=== PATIENT | male | born 1950 ===

== ENCOUNTER 2024-11-15 10:45 | Outpatient (AMB) | payer OTHER, SELFPAY ==
--- OUTSIDE RECORDS SUMMARY | 2024-11-15 11:59 | XMS_ITS | Clinical Summary ---
Author Organization [facility] Address [address] [place] [address] Phone Care Team Providers Care Adjunct Spanish Instructor Name Role Phone Rhett Brown MD Primary Care Provider + Allergies No known active allergies Medications pantoprazole (PROTONIX) 40 MG tablet 01/14/2023 Active sucralfate (CARAFATE) 1 gram tablet 12/13/2022 Active TIADYLT ER 120 mg 24 hr capsule Take 1 capsule by mouth every morning. 12/01/2022 Active cromolyn (OPTICROM) 4 % ophthalmic solution PLACE 1 DROP INTO THE AFFECTED EYE(S) 4 TIMES A DAY X90N DAYS 01/15/2023 Active ADVAIR DISKUS 250-50 mcg/dose DISKUS INHALE 1 PUFF 2 TIMES A DAY FOR 90 DAYS 11/04/2022 Active meloxicam (MOBIC) 15 MG tablet Take 15 mg by mouth daily. Active Active Problems Problem Noted Date Diagnosed Date Pharyngoesophageal dysphagia 01/27/2023 Gastroesophageal reflux disease 01/27/2023 Dry mouth 01/27/2023 Dysphonia 01/27/2023 Paroxysmal SVT (supraventricular tachycardia) 01/23/2023 Encounters Date Type Department Care Team Description 09/08/2024 Transcribe Orders [facility] [address] [place] [address], 5[address] [place] [address] Rhett Brown MD Gastroesophageal reflux disease, unspecified whether esophagitis present (Primary Dx) from Last 3 Months Social History Tobacco Use Types Packs/Day Years Used Date Smoking Tobacco: Never Assessed Education Answer Date Recorded Are you interested in more education? Not on gaby e 09/12/2022 Are you concerned about learning? Not on file 09/12/2022 No 09/12/2022 No 09/12/2022 Digital Access Answer Date Recorded No 09/12/2022 No 09/12/2022 Reliable internet access at home? Not on file 09/12/2022 Device with a working camera? Not on file Sex and Gender Information Value Date Recorded Sex Assigned at Male 07/03/2022 12:01 PM EDT Legal Sex Male 11:57 AM EDT Gender Identity Male 07/03/2022 12:01 PM EDT Sexual Orientation Straight 07/03/2022 12 :01 PM EDT Last Filed Vital Signs Vital Sign Reading Time Taken Comments Blood Pressure 115/81 01/23/2023 11:24 AM EDT Pulse 106 01/23/2023 11:24 AM EDT Temperature 36.9 C (98.5 F) 01/23/2023 11:24 AM EDT Respiratory Rate - - Oxygen Saturation 99% 01/23/2023 11:24 AM EDT Inhaled Oxygen Concentration - - Weight 73.5 kg (162 lb) 01/23/2023 11:24 AM EDT Height 188 cm (6' 2 ) 01/23/2023 11:24 AM EDT Body Mass Index 20.8 01/23/2023 11:24 AM EDT Plan of Treatment Health Maintenance Due Date Last Done Comments Adult Td,Tdap Booster 1949 LIPID PANEL 1949 SMOKING Hx and SMOKELESS TOBACCO SCREENING 1962 HEPATITIS C SCREENING 1967 COLOGUARD 1994 COLONOSCOPY 1994 COLORECTAL CANCER SCREENING 1994 FIT TEST 1994 FOBT 1994 SIGMOIDOSCOPY 1994 VIRTUAL COLONOSCOPY 1994 PNEUMOCOCCAL VACCINES (50+ years) (1 of 1 - PCV) 1999 ZOSTER VACCINES (1 of 2) 1999 COVID-19 VACCINE ( - 2023-2 5 season) 2023 DEPRESSION SCREENING 01/17/2024 01/16/2023, 01/16/2023 RSV VACCINE (1 - 1-dose 75+ series) 2024 INFLUENZA VACCINE (#1) 2024 HEPATITIS A VACCINES Aged Out No long er eligible based on patient's age to complete this topic HIB VACCINES Aged Out No longer eligi ble based on patient's age to complete this topic MENINGOCOCCAL VACCINES (ACWY) Aged Out No longer eligible based on patient's age to complete this topic MENINGOCOCCAL VACCINES (B) Aged Out N o longer eligible based on patient's age to complete this topic Medical Devices Not on file Insurance [employer] TOTAL CHOICE INDEMNITY [employer] TOTAL CHOICE INDEMNITY [employer] TOTAL CHOICE INDEMNITY [employer] TOTAL CHOICE INDEMNITY [employer] [facility] TOTAL CHOICE INDEMNITY [employer] TOTAL CHOICE INDEMNITY Care Teams Adjunct Spanish Instructor Relationship Specialty Start Date End Date Rhett Brown MD [address] [place] [address] [email or web address] PCP - General Internal Medicine 07/03/22 Additional Source Comments The information contained in this document represents components of the legal health record. It is not the complete legal health record.[facility]
--- OUTSIDE RECORDS SUMMARY | 2024-11-15 11:59 | XMS_ITS | Patient Health Record ---
Author Organization [facility] Address [address] [facility] [place] [address] Care Team Providers Care Firer Glost Kiln Name Role Phone Humble Vásquez MD Primary Care Provider Lei Flores Unavailable [phone] Reason For Referral No Information Medications Medication SIG (Take, Route, Frequency, Duration) Notes Start Date End Date Status Sucralfate Active Glucosamine 1500 Complex Active Chondroitin Sulfate Active Mobic Active Fluticasone Propionate 50 MCG/ACT 1 spray in each nostril Nasally Once a day; Duration: 30 day(s) Active Margaret Active Physical Therapy . . .dx: achilles tend initis and retrocalcaneal burisits left with spur; please us US, ES and iontophoresis 2-3x/week; Duration: 3-4 weeks 05/21/2013 Active Cromolyn Sodium Acti ve Social History Tobacco use other than smoking: Question Answer Notes Are you an other tobacco user? No Problems Problem Type SNOMED Code ICD Code Onset Dates Problem Status W/U Status Risk Notes Problem Disorder of joint of ankle and/or foot (053843606) Arthritis - Degenerative (719.97) Active confirmed Problem Hammer toe (424033002) Hammer toe (735.4) Active confirmed Problem Achilles bursitis (081616841) Achilles Tendonitis Bursitis (726.71) Active confirmed Problem Exostosis (86839819) Exostosis (726.91) Active confirmed Plan Of Treatment No Information Insurance Providers Payer Name Payer Address Payer Phone Subscriber Number Group Number Insured Name Patient Relationship to Insured Coverage Start Date Coverage End Date [employer] (Unicare) [address] [place] [address] [id number] Red Gomez Self - patient is the insured Medical (General) History Medical History History ICD Code asthma Sinus conditions Surgical History Surgery Date(Month/Year) hernia 2012 knee surgery, left shoulder surgery Hospitalization History Reason Date(Month/Year) [facility]- hernia surgery 06/05/12 colonoscopy 04/06
--- OUTSIDE RECORDS SUMMARY | 2024-11-15 11:59 | XMS_ITS | Clinical Summary ---
Author Organization [facility] [address] [facility] Address [address] [place] [address] Phone Care Team Providers Care Salesforce Specialist Name Role Phone Rhett Brown MD Primary Care Provider [phone] Allergies No known active allergies Medications albuterol HFA (PROAIR HFA ; PROVENTIL HFA ; VENTOLIN HFA) 90 mcg/actuation inhaler INHALE 2 PUFFS BY MOUTH 4 TIMES DAILY NEEDED FOR COUGH/WHEEZE Active cromolyn (OPTICROM) 4 % ophthalmic solution PLACE 1 DROP INTO THE AFFECTED EYE(S) 4 TIMES A DAY X90N DAYS 01/16/20 23 Active Tiadylt ER 120 mg 24 hr capsule Take 1 capsule (120 mg total) by mouth 1 (one) time each day. Active Wixela Inhub 250-50 mcg/dose diskus inhaler INHALE 1 INHALATION TWICE A DAY Active fluticasone propionate (Flonase Allergy Relief) 50 mcg/actuation nasal spray 2 times a day, 0 Refills, Maintenance, 01/21/18 11:38:27 AM EDT 01/22/20 18 Active hydrocortisone (ANUSOL-HC) 2.5 % rectal cream APPLY RECTIALLY 2 TIMES DAILY 09/01/19 24 Active meloxicam (MOBIC) 15 mg tablet Take 1 tablet (15 mg total) by mouth daily. Active metroNIDAZOLE (METROGEL) 0.75 % gel APPLY 1-2X DAILY TO FACE FOR ROSACEA. NON-COMEDOGENI C MOISTURIZER WITH SPF 30+ DAILY 07/06/19 25 Active mometasone (NASONEX) 50 mcg/actuation nasal spray Administer 1 spray into each nostril 2 (two) times a day. 03/26/19 25 Active pantoprazole (PROTONIX) 40 mg EC tabletIndicatio ns:Gastroesopha geal reflux disease without esophagitis TAKE 1 TABLET BY MOUTH TWICE A DAY 180 tablet 11/13/19 25 Active pantoprazole (PROTONIX) 40 mg EC tabletIndicatio ns:Gastroesopha geal reflux disease without esophagitis TAKE 1 TABLET BY MOUTH TWICE A DAY 180 tablet 08/10/19 25 025 Discontinued Encounters Date Type Department Care Team Description 08/25/2024 10:00 AM EDT Office Visit Gastroenterology - [address] [place] [id number] Aguilar Dow PA Gastroesophageal reflux disease without esophagitis (Primary Dx); Colon cancer screening from Last 3 Months Surgical History Surgery Date Site/Laterality Comments COLONOSCOPY 03/24/2013 - 03/23/2014 hemorrhoids ([address] Bryant Social History Tobacco Use Types Packs/Day Years Used Date Smoking Tobacco: Never Smokeless Tobacco: Never Tobacco Cessation:Counseling Given: Not Answered Alcohol Use Standard Drinks/Week Comments Never 0 (1 standard drink = 0.6 oz pur e alcohol) Sex and Gender Information Value Date Recorded Sex Assigned at Not on file Legal Sex Male 11:31 AM EST Gender Identity Not on file Sexual Orientation Not on file Obstetrics History Last Filed Vital Signs Vital Sign Reading Time Taken Comments Blood Pressure - - Pulse - - Temperature - - Respiratory Rate - - Oxygen Saturation - - Inhaled Oxygen Concentration - - Weight 73 kg (161 lb) 08/25/2024 10:00 AM EDT Height 193 cm (6' 4 ) 08/25/2024 10:00 AM EDT Body Mass Index 19.6 08/25/2024 10:00 AM EDT Plan of Treatment Health Maintenance Due Date Last Done Comments DTaP,Tdap,and Td Vaccines (1 - Tdap) 1969 Pneumococcal Vaccine: 50+ Years (2 of 2 - PPSV23) 11/17/2018 11/17/2017 Cholesterol Screening (Lipid Panel) 02/19/2022 Falls Risk Assessment 02/19/2022 Hepatitis C Screening 02/19/2022 Social Influencers of Health Screening 02/19/2022 Colorectal Cancer Screening: Colonoscopy 03/30/2023 03/30/2013 Depression Screening 03/24/2024 COVID-19 Vaccine ( season) 2024 02/29/2024, 06/13/2023, 06/11/2023, Additional history exists Influenza Vaccine (#1) 2024 , 01/03/2023, 12/27/2021, Additional history exists Zoster Vaccines Completed 12/17/2017, 09/04/2017 RSV Immunization Adult Patients Completed 03/16/2023 HIB Vaccines Aged Out No longer eligi ble based on patient's age to complete this topic HPV Vaccines Aged Out No longer eligi ble based on patient's age to complete this topic Hepatitis A Vaccines Aged Out No long er eligible based on patient's age to complete this topic Hepatitis B Vaccines Aged Out No long er eligible based on patient's age to complete this topic IPV Vaccines Aged Out No longer eligi ble based on patient's age to complete this topic MMR Vaccines Aged Out No longer eligi ble based on patient's age to complete this topic Meningococcal ACWY Vaccine Aged Out N o longer eligible based on patient's age to complete this topic Meningococcal B Vaccine Aged Out No l onger eligible based on patient's age to complete this topic RSV Immunization Patients Under 20 months Aged Out No longer eligible based on patient's age to complete this topic Varicella Vaccines Aged Out No longer eligible based on patient's age to complete this topic Procedures Procedure Name Priority Date/Time Associated Diagnosis Comments EXTERNAL COLONOSCOPY REPORT Routine 03/30/2013 4:00 PM EST from Last 3 Months or Most Recently Relevant to Health Maintenance Results * External Colonoscopy Report (03/30/2013 4:00 PM EST) Anatomical Region Laterality Modality Endoscopy us Historical Provider GI~PROCEDURE ORDERABLES F inal Result from Last 3 Months or Most Recently Relevant to Health Maintenance Insurance [employer] Care Teams Salesforce Specialist Relationship Specialty Start Date End Date Rhett Brown MD [address] [place] [address] PCP - General Internal Medicine 08/25/24
== END 2024-11-16 11:16 | disposition home or self-care (01) ==
LOC: HO.HMGAL 10:45
PROVIDERS: PCP Internal Medicine; Visit Provider Registered Nurse Emergency
DX: J30.89 Other allergic rhinitis (principal)
CPT/HCPCS: 95117; 95165

== ENCOUNTER 2024-12-06 11:30 | Outpatient (AMB) | payer OTHER, SELFPAY ==
--- OUTSIDE RECORDS SUMMARY | 2024-12-06 15:47 | XMS_ITS | Encounter Summary ---
Author Organization [facility] Address [address] [place] [address] Phone Care Team Providers Care Ground Water Technician Name Role Phone Rhett Brown MD Primary Care Provider + Encounter Details Date Type Department Care Team (Late st Contact Info) Description 11/29/2024 Hospital Encounter [address] DEPT [address] [facility], 4th [place] [address] Stephanie Orona MD [address] [place] [id number] [email or web address] Social History Tobacco Use Types Packs/Day Years [...] Orientation Straight 07/03/2022 12 :01 PM EDT documented as of this encounter Plan of Treatment Not on file documented as of this encounter Visit Diagnoses Not on filedocumented in this encounter Additional Health Concerns Assessment Noted Time PHQ-9 Depression Total Score: 2 01/17/20 8:56 PM EDT PHQ-2 Depression Total Score: 0 01/17/20 8:56 PM EDT documented as of this encounter Care Teams Ground Water Technician Relationship Specialty Start Date End Date Rhett Brown MD [address] [place] [address] [email or web address] PCP - General Internal Medicine 07/03/22 documented as of this encounter Additional Source Comments The information contained in this document represents components of the legal health record. It is not the complete legal health record.[facility]
--- OUTSIDE RECORDS SUMMARY | 2024-12-06 15:47 | XMS_ITS | Clinical Summary ---
Author Organization [facility] Address [address] [place] [phone] Phone Care Team Providers Care Health Information Technologist Name Role Phone Rhett Brown MD Primary [...] Encounters Date Type Department Care Team Description 11/29/2024 Hospital Encounter [place] [address] ENDO DEPT [address] [facility], 4th [place] [address] Stephanie Orona MD 09/08/2024 Transcribe Orders [facility] [address] [facility], 5th [place] [address] Rhett Brown MD Gastroesophageal reflux disease, unspecified [...] 1999 ZOSTER VACCINES (1 of 2) 1999 DEPRESSION SCREENING 01/17/2024 01/16/2023, 01/16/2023 RSV VACCINE (1 - 1-dose 75+ series) 2024 INFLUENZA VACCINE (#1) 2024 COVID-19 VACCINE (1 - 2023-2 5 season) 2024 HEPATITIS A VACCINES Aged Out No [...] topic Medical Devices Not on file Insurance [employer] TOTAL CHOICE INDEMNITY [employer] TOTAL CHOICE INDEMNITY [employer] TOTAL CHOICE INDEMNITY [employer] TOTAL CHOICE INDEMNITY [employer] TOTAL CHOICE INDEMNITY [facility] TOTAL CHOICE INDEMNITY Care Teams Health Information Technologist Relationship Specialty Start Date End Date Rhett Brown MD [address] [place] [address] [email or web address] PCP - General Internal Medicine 07/03/22 Additional Source Comments The information contained in this document represents components of the legal health record. It is not the complete legal health record.[facility]
--- OUTSIDE RECORDS SUMMARY | 2024-12-06 15:47 | XMS_ITS | Encounter Summary ---
Author Organization [facility] Address [address] [place] [address] Phone Care Team Providers Care Industrial Gas Fitter Name Role Phone Rhett Brown MD Primary Care Provider + Encounter Details Date Type Department Care Team (Late st Contact Info) Description 11/23/[address] [facility] ENDO DEPT [address] [facility], 4th [place] [address] Social History Tobacco Use Types Packs/Day Years [...] Time PHQ-9 Depression Total Score: 2 01/17/20 23 8:56 PM EDT PHQ-2 Depression Total Score: 0 01/17/20 8:56 PM EDT documented as of this encounter Care Teams Industrial Gas Fitter Relationship Specialty Start Date End Date Rhett Brown MD [address] [place] [address] [email or web address] PCP - General Internal Medicine 07/03/22 documented as of this encounter Additional Source Comments The information contained in this document represents components of the legal health record. It is not the complete legal health record.[facility]
--- OUTSIDE RECORDS SUMMARY | 2024-12-06 15:47 | XMS_ITS | Patient Health Record ---
Author Organization [facility] Address [address] [place] [address] Care Team Providers Care Axle Turner Name Role Phone Humble áVsquez MD Primary Care Provider Lei Flores Unavailable [phone] Reason For Referral No Information Medications Medication [...] Disorder of joint of ankle and/or foot (845642255) Arthritis - Degenerative (719.97) Active confirmed Problem Hammer toe (305389682) Hammer toe (735.4) Active confirmed Problem Achilles bursitis (113959123) Achilles Tendonitis Bursitis (726.71) Active confirmed Problem Exostosis (52021197) Exostosis (726.91) Active confirmed Plan Of Treatment No Information Insurance Providers Payer Name Payer Address Payer Phone Subscriber Number Group Number Insured Name Patient Relationship to Insured Coverage Start Date Coverage End Date [employer] (Unicare) [address] [place] [address] [id number] Red Gomez Self - patient is the insured Medical (General) History Medical History History ICD Code asthma Sinus conditions Surgical History Surgery Date(Month/Year) hernia 2012 knee surgery, left shoulder surgery Hospitalization History Reason Date(Month/Year) [facility]- hernia surgery 06/05/12 colonoscopy 04/06
--- OUTSIDE RECORDS SUMMARY | 2024-12-06 15:47 | XMS_ITS | Clinical Summary ---
Author Organization [facility] [address] [facility] Address [address] [facility] [place] [address] Phone Care Team Providers Care Manager Of Pharmacy Name Role Phone Rhett Brown MD Primary Care Provider [phone] Allergies No known active allergies Medications albuterol [...] DAY 180 tablet 08/10/19 25 025 Discontinued Surgical History Surgery Date Site/Laterality Comments COLONOSCOPY [...] PM EST) Anatomical Region Laterality Modality Endoscopy Historical Provider GI~PROCEDURE ORDERABLES F inal Result from Last 3 Months or Most Recently Relevant to Health Maintenance Insurance [employer] Care Teams Manager Of Pharmacy Relationship Specialty Start Date End Date Rhett Brown MD [address] [place], [place] PCP - General Internal Medicine 08/25/24
== END 2024-12-06 11:41 | disposition home or self-care (01) ==
LOC: HO.HMGAL 11:30
PROVIDERS: PCP Internal Medicine; Visit Provider Registered Nurse Emergency
DX: J30.89 Other allergic rhinitis (principal)
CPT/HCPCS: 95117; 95165

== ENCOUNTER 2025-01-05 10:47 | Outpatient (AMB) | payer OTHER, SELFPAY | END 2025-01-05 10:48 | disposition home or self-care (01) | LOC: HO.HMGAL 10:47 | PROVIDERS: PCP Internal Medicine; Visit Provider Registered Nurse Emergency | DX: J30.89 Other allergic rhinitis (principal) | CPT/HCPCS: 95117; 95165 ==

== ENCOUNTER 2025-01-24 10:55 | Outpatient (AMB) | payer OTHER, SELFPAY | END 2025-01-24 10:56 | disposition home or self-care (01) | LOC: HO.HMGAL 10:55 | PROVIDERS: PCP Internal Medicine; Visit Provider Registered Nurse Emergency | DX: J30.89 Other allergic rhinitis (principal) | CPT/HCPCS: 95117; 95165 ==

== ENCOUNTER 2025-02-16 13:54 | Outpatient (AMB) | payer OTHER, SELFPAY ==
--- OUTSIDE RECORDS SUMMARY | 2025-02-15 14:45 | XMS_ITS | Encounter Summary ---
Author Organization [facility] Address [address] [place] [address] Phone Care Team Providers Care Pie Maker Name Role Phone Rhett Brown MD Primary Care Provider + Encounter Details Date Type Department Care Team (Late st Contact Info) Description 02/15/2025 2:45 PM EST Pre-Admission Testing [facility] Pre-Procedure Evaluation Department Please See [place] [address] Stephanie Orona MD [address] [place] [phone] [email or web address] Social History Tobacco Use Types Packs/Day Years Used Date Smoking Tobacco: Never Smokeless Tobacco: Never Tobacco Cessation:Counseling Given: Not Answered Alcohol Use Standard Drinks/Week Comments Never 0 (1 standard drink = 0.6 oz pur e alcohol) Education Answer Date Recorded Are you interested [...] PM EDT documented as of this encounter Last Filed Vital Signs Vital Sign Reading Time Taken Comments Blood Pressure - - Pulse - - Temperature - - Respiratory Rate - - Oxygen Saturation - - Inhaled Oxygen Concentration - - Weight - - Height 193 cm (6' 4 ) 02/15/2025 2:09 PM EST Body Mass Index - - documented in this encounter Progress Notes * Mari Kohli RN - 02/15/2025 2:45 PM EST Nursing Diagnosis: Knowledge Deficit Pre-procedure nursing goal: Patient/Caregiver will demonstrate understanding of the perioperative process with includes: hygiene, safety, pain scales, and the concepts of Family Centered Care. Interventions: Patient/caregiver was assessed for readiness to learn and baseline knowledge regarding surgical experience. In addition to items identified on PPE check list, the patient/caregiver was given information on pre-op hygiene and pre-op instructions such as no jewelry or valuables, and measures taken to preventadverse events. Pain management was addressed using appropriate pain scale and post op pain management skills. Patient instructed to call GI physician???s office for any further question or changes in health. Evaluation: The patient/caregiver verbalizes understanding of the perioperative process and the need to have anadult escort for discharge if having ambulatory surgery. Evaluation: The parent/caregiver verbalizes understanding of the perioperative process Guidelines/Instructions NO candy, gum, lifesavers, cough drops or breath mints on the day of procedure Refer to [facility] gastro[facility]ology doctor???s instruction packet for prep, fasting instructions and medication instructions including any Diabetic medications or blood thinners Morning of Procedure Report to location in instruction packet documented in this encounter Plan of Treatment Upcoming Encounters Date Type Department Care Team (Latest Contact Info) Description 03/04/[address] [facility] 4 ENDO DEPT [address] [facility], [address] [place] [address] 03/04/2025 12:30 PM EST Hospital Encounter [facility] 4 ENDO DEPT [address] [facility], [address] [place] [address] Stephanie Orona MD [address] [address] [email or web address] 03/04/2025 12:30 PM EST - 03/04/2025 1:[address] [facility] ENDO DEPT [address] [facility], [address] [place] [address] Stephanie Orona MD [address] [address] [email or web address] [email or web address] WITH DUMONT PROBE 03/08/[address] [facility] ENDO DEPT [address] [facility], [address] [place] [address] 03/08/2025 11:00 AM EST Hospital Encounter [facility] ENDO DEPT [address] [facility], [address] [place] [address] Stephanie Orona MD [address] [address] [email or web address] 03/08/2025 11:00 AM EST - 03/08/2025 11:[address] [facility] ENDO DEPT [address] [facility], [address] [place] [address] Stephanie Orona MD [address] [address] [email or web address] REMOVAL Scheduled Procedures Name Priority Associated Diagnoses Date/Ti md ESOPHAGOGASTRODUODENOSCOPY W ITH DUMONT PROBE Pharyngoesophageal dysphagia Gastroesophageal reflux disease, unspecified whether esophagitis present 03/04/2025 12:30 PM EST PH PROBE REMOVAL ON MEDS 03/08/2025 11:00 AM EST documented as of this encounter Visit Diagnoses Not on filedocumented in this encounter Additional Health Concerns Assessment Noted Time PHQ-9 Depression Total Score: 2 01/17/20 8:56 PM EDT PHQ-2 Depression Total Score: 0 01/17/20 8:56 PM EDT documented as of this encounter Care Teams Pie Maker Relationship Specialty Start Date End Date Rhett Brown MD [address] [place] [address] [email or web address] PCP - General Internal Medicine 07/03/22 documented as of this encounter Additional Source Comments The information contained in this document represents components of the legal health record. It is not the complete legal health record.[facility]
--- OUTSIDE RECORDS SUMMARY | 2025-02-16 16:56 | XMS_ITS | Clinical Summary ---
Author Organization [facility] Address [address] [place] [address] Phone Care Team Providers Care Outbound Call Center Representative Name Role Phone Rhett Brown MD Primary Care Provider + Allergies No known active allergies Medications pantoprazole (PROTONIX) 40 MG tablet Take 40 mg by mouth 2 (two) times a day (once in the morning and once in the afternoon). 3 Active sucralfate (CARAFATE) 1 gram tablet 3 Active TIADYLT ER 120 mg 24 hr capsule Take 1 capsule by mouth every morning. 3 Active cromolyn (OPTICROM) 4 % ophthalmic solution 2 (two) times a day (once in the morning and once in the afternoon). 3 Active ADVAIR DISKUS 250-50 mcg/dose DISKUS INHALE 1 PUFF 2 TIMES A DAY FOR 90 DAYS 3 Active meloxicam (MOBIC) 15 MG tablet Take 15 mg by mouth daily. Active fluticasone propion-salmete roL (ADVAIR DISKUS) 250-50 mcg/dose DISKUS Inhale 250 mcg/actuation of fluticasone into the lungs. Active mometasone (NASONEX) 50 mcg/actuation nasal spray 2 sprays by Nasal route daily. 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 NON-COMEDOGENIC MOISTURIZER WITH SPF 30+ DAILY Active Active Problems Problem Noted Date Diagnosed Date Pharyngoesophageal dysphagia 01/27/2023 Gastroesophageal reflux disease 01/27/2023 Dry mouth 01/27/2023 Dysphonia 01/27/2023 Paroxysmal SVT (supraventricular tachycardia) 01/23/2023 Encounters Date Type Department Care Team Description 02/15/2025 2:45 PM EST Pre-Ad[facility] Testing [facility] Pre-Procedure Evaluation Department [place] [address] Stephanie Orona MD from Last 3 Months Social History Tobacco [...] (162 lb) 01/23/2023 11:24 AM EDT Height 193 cm (6' 4 ) 02/15/2025 2:09 PM EST Body Mass Index 20.8 01/23/2023 11:24 AM EDT Plan of Treatment Upcoming Encounters Date Type Department Care Team (Latest Contact Info) Description 03/04/2025 Procedure Pass [facility] ENDO DEPT [address] [facility], [address] [place] [phone] 03/04/2025 12:30 PM EST Hospital Encounter [facility] ENDO DEPT [address] [facility], [address] [place] [phone] Stephanie Orona MD [address] [address] [email or web address] 03/04/2025 12:30 PM EST - 03/04/2025 1:30 PM EST Surgery [facility] ENDO DEPT [address] [facility], [address] [place] [phone] Stephanie Orona MD [address] [address] [email or web address] ESOPHAGOGASTRODUODENOSCOPY WITH DUMONT PROBE 03/08/2025 Procedure Pass [facility] ENDO DEPT [address] [facility], [address] [place] [address] 03/08/2025 11:00 AM EST Hospital Encounter [facility] ENDO DEPT [address] [facility], [address] [place] [address] Stephanie Orona MD [address] [address] [email or web address] 03/08/2025 11:00 AM EST - 03/08/2025 11:30 AM EST Surgery [facility] ENDO DEPT [address] [facility], [address] [place] [phone] Stephanie Orona MD [address] [address] [email or web address] PH PROBE REMOVAL Scheduled Procedures Name Priority Associated Diagnoses Date/Ti me ESOPHAGOGASTRODUODENOSCOPY W ITH DUMONT PROBE Pharyngoesophageal dysphagia Gastroesophageal reflux disease, unspecified whether esophagitis present 03/04/2025 12:30 PM EST PH PROBE REMOVAL ON MEDS 03/08/2025 11:00 AM EST Health Maintenance Due Date Last Done Comments Adult Td,Tdap Booster 1950 LIPID PANEL 1950 HEPATITIS C SCREENING 1967 COLOGUARD 1994 COLONOSCOPY 1994 COLORECTAL CANCER SCREENING 1994 FIT TEST 1994 FOBT 1994 SIGMOIDOSCOPY 1994 VIRTUAL COLONOSCOPY 1994 PNEUMOCOCCAL VACCINES (50+ years) (1 of 1 - PCV) 1999 ZOSTER VACCINES (1 of 2) 1999 DEPRESSION SCREENING 01/17/2024 01/16/2023, 01/16/2023 RSV VACCINE (1 - 1-dose 75+ series) 2024 INFLUENZA VACCINE (#1) 2024 COVID-19 VACCINE (1 - 2024-2 6 season) 2024 SMOKING STATUS SCREENING (On ce After 26 Yrs) Completed 02/15/2025 HEPATITIS A VACCINES Aged Out No long [...] topic Medical Devices Not on file [facility] T[facility] INDEMNITY [employer] TOTAL CHOICE INDEMNITY [employer] TOTAL CHOICE INDEMNITY [employer] TOTAL CHOICE INDEMNITY [employer] [facility] TOTAL CHOICE INDEMNITY [facility] TOTAL CHOICE INDEMNITY Care Teams Outbound Call Center Representative Relationship Specialty Start Date End Date Rhett Brown MD [address] [place] [phone] [email or web address] PCP - General Internal Medicine 07/03/22 Additional Source Comments The information contained in this document represents components of the legal health record. It is not the complete legal health record.[facility]
--- OUTSIDE RECORDS SUMMARY | 2025-02-16 16:56 | XMS_ITS | Clinical Summary ---
Author Organization [facility] [address] [facility] Address [address] [facility] [place] [address] Phone Care Team Providers Care Data Analytics Developer Name Role Phone Rhett Brown MD Primary Care Provider [phone] Allergies No known active allergies Medications albuterol [...] BY MOUTH TWICE A DAY 180 tablet 02/12/20 25 Active pantoprazole (PROTONIX) 40 mg EC tabletIndicatio ns:Gastroesopha geal reflux disease without esophagitis TAKE 1 TABLET BY MOUTH TWICE A DAY 180 tablet 11/13/19 25 025 Discontinued Surgical History Surgery Date [...] Vaccine: 50+ Years (2 of 2 - PCV20 or PCV21) 11/17/2018 11/17/2017 Cholesterol Screening (Lipid Panel) 02/19/2022 [...] to Health Maintenance Insurance [employer] Care Teams Data Analytics Developer Relationship Specialty Start Date End Date Rhett Brown MD [address] [place], [place] PCP - General Internal Medicine 08/25/24
== END 2025-02-16 13:55 | disposition home or self-care (01) ==
LOC: HO.HMGAL 13:54
PROVIDERS: PCP Internal Medicine; Visit Provider Registered Nurse Emergency
DX: J30.89 Other allergic rhinitis (principal)
CPT/HCPCS: 95117; 95165

== ENCOUNTER 2025-03-09 10:58 | Outpatient (AMB) | payer OTHER, SELFPAY ==
--- OUTSIDE RECORDS SUMMARY | 2025-03-04 11:10 | XMS_ITS | Encounter Summary ---
Author Organization [facility] Address [address] [place] [phone] Phone Care Team Providers Care Copy Reader Name Role Phone Rhett Brown MD Primary Care Provider + Reason for Visit * Auth/Cert (Routine) Specialty Diagnoses / Procedures Referred By Bret holden Referred To Contact Diagnoses Pharyngoesophageal dysphagia Gastroesophageal reflux disease, unspecified whether esophagitis present Pharyngoesophageal dysphagia [R13.14] Gastroesophageal reflux disease, unspecified whether esophagitis present [K21.9] Procedures [place] ESOPHAGOGASTRODUODENOSCOPY TRANSORAL DIAGNOSTIC ESOPHAGOGASTRODUODENOSCOPY WITH DUMONT PROBE Referral ID Status Reason Start Date Expiration Date Visits Re quested Visits Authorized [id number] 1 1 Encounter Details Date Type Department Care Team (Latest Contact Info) Description 03/04/2025 11:10 AM EST - 03/04/2025 3:11 PM [facility] Hospital Encounter [place] [id number] ENDO DEPT [address] [place] [address], [address] [place] [address] Stephanie Orona MD [address] [place] [phone] [email or web address] Discharge Disposition: Home or Self Care Social History Tobacco Use Types Packs/Day Years Used Date Smoking Tobacco: Never Smokeless Tobacco: Never Alcohol Use Standard Drinks/Week Comments Never 0 [...] with a working camera? Not on file Intimate Partner Violence Answer Date R ecorded Are you denied basic needs s uch as food, clothing, or medical care? No 03/04/2025 In the past 12 months have y ou been in a relationship with a person who hurts, threatens, or tries to control you? No 03/04/2025 Are you denied basic needs s uch as food, clothing, or medical care? No 03/04/2025 In the past 12 months have y ou been in a relationship with a person who hurts, threatens, or tries to control you? No 03/04/2025 Sex and Gender Information Value Date Recorded Sex Assigned at Male 07/03/2022 12:01 PM EDT Legal Sex Male 11:57 AM EDT Gender Identity Male 07/03/2022 12:01 PM EDT Sexual Orientation Straight 07/03/2022 12 :01 PM EDT documented as of this encounter Last Filed Vital Signs Vital Sign Reading Time Taken Comments Blood Pressure 126/75 03/04/2025 2:53 PM EST Pulse 83 03/04/2025 2:53 PM EST Temperature 37.3 C (99.1 F) 03/04/2025 12:30 PM EST Respiratory Rate 18 03/04/2025 2:53 PM EST Oxygen Saturation 98% 03/04/2025 2:53 PM EST Inhaled Oxygen Concentration - - Weight - - Height - - Body Mass Index - - documented in this encounter Discharge Instructions * Discharge Instructions* Stephanie Orona MD - 03/04/2025 2:18 PM EST [facility] Discharge Sheet [email or web address] Physician: Dr. Stephanie Orona MD General instructions: The staff of the [facility] thanks you for allowing us to participate in your care. This form will explain the results of your test and contains your post-procedure instructions. Sedative and narcotic medicines given during your procedure may linger for hours. The medications may also cause some memory loss. Therefore, you may not remember the procedure or the conversations with doctors and nurses that took place after the procedure is over. You may notice drowsiness duringthe remainder of the day. It is essential that a responsible adult escort you home. Do not drive oroperate any machinery for at least 12 hours after your procedure. Do not plan any activities that require complex thought or coordination today. If a biopsy was done, or a polyp was removed, it will be sent to the pathology laboratory for results. The pathology results will be available within 14 days. Diet: Resume your usual diet today. If you feel bloated or uncomfortable, take only clear liquids by mouth until the feeling passes. Medications: Resume your usual medications today. DO NOT DRINK ALCOHOL OR TAKE SEDATIVES FOR 24 HOURS. Results and follow-up: Your test today demonstrated scar tissue and poor function of your oropharynx, with accumulated saliva, only mild narrowing the upper esophageal sphincter, we did a wire guided dilation as planned, the esophagus has, as expected from prior studies, a dilated appearance and poor function. Nothing endoscopic to suggest achalasia. We did see a small incidental submucosal venous type polyp, in the distal esophagus, it looked benign and incidental to us and to colleague from interventional endoscopy. You also had incidental benign gastric polyp. We placed uneventfully the Dumont pH probe. All results will be sent to your primary care physician/referring doctor. The doctor who performed your procedure will notify you by patient gateway, phone, or mail about the results of your biopsy or polyp removal. You should contact the physician who performed the procedure if you have not received a letter or phone call within 2 weeks. Recommendations: Resume pantoprazole 40 mg twice daily and follow the 96 hour Dumont pH recording instructions and diary. Based on the endoscopic appearance of the upper esophageal sphincter, its not likely that the dilation will improve your symptoms. If however it does make you feel better and the effect lasts at least 6 months it can be repeated. Other information: Serious problems after procedure are rare, but please also note the specific instructions below: Your IV has been removed. Please watch the IV site for signs of infection such as redness, swelling, warmth, or a red/dark line streaking up your arm. If you have any of these symptoms, please contact the doctor that performed your procedure. Upper endoscopy: If you received some local anesthesia (numbing) medication to your throat before the examination, this will persist for about 2 hours, and during this time, you'll have difficulty swallowing normally. You should not eat or drink until the medication wears off; otherwise food or fluid might pass into your windpipe, causing coughing, choking, or even pneumonia. The endoscopy exam may cause your throat to be somewhat irritated or sore for a day or so, but this will gradually go away. Notify your doctor immediately if you develop persistent cough or difficulty breathing, severe chest or back pain, significant abdominal pain, persistent nausea and vomiting, vomiting of blood, passage of black stools, or significant fever. In case of an emergency you feel is related to your procedure, call your doctor???s office at any time (the answering service can page your doctor or an associate). You may also go to the nearest emergency room. Thank you for letting us care for you. documented in this encounter Medications at Time of Discharge ADVAIR DISKUS 250-50 mcg/dose DISKUS INHALE 1 PUFF 2 TIMES A DAY FOR 90 DAYS 11/04/2022 cromolyn (OPTICROM) 4 % ophthalmic solution 2 (two) times a day (once in the morning and once in the afternoon). 01/15/2023 fluticasone propion-salmeter oL (ADVAIR DISKUS) 250-50 mcg/dose DISKUS Inhale 250 mcg/actuation of fluticasone into the lungs. meloxicam (MOBIC) 15 MG tablet Take 15 mg by mouth daily. metroNIDAZOLE (ROSADAN) 0.75 % gel APPLY 1-2X DAILY TO FACE FOR ROSACEA. NON-COMEDOGENIC MOISTURIZER WITH SPF 30+ DAILY 07/05/2024 mometasone (NASONEX) 50 mcg/actuation nasal spray 2 sprays by Nasal route daily. pantoprazole (PROTONIX) 40 MG tablet Take 40 mg by mouth 2 (two) times a day (once in the morning and once in the afternoon). 01/14/2023 sucralfate (CARAFATE) 1 gram tablet 12/13/2022 TIADYLT ER 120 mg 24 hr capsule Take 1 capsule by mouth every morning. 12/01/2022 documented as of this encounter Procedure Notes * Stephanie Orona MD - 03/04/2025 1:18 PM ESTAssociated Order(s): ENDOSCOPY PROCEDURE Gastrointestinal Endoscopy Unit Patient Name: Red Gomez Exam Date: 03/04/2025 1:18 PM Date of : 1950 Admit Type: Outpatient Age: 74 Room: [place] [address] Gender: Male Note Status: Frame Table Operator Helper Override Attending MD: Suman Orona MD, Procedure: Upper GI endoscopy Indications: Heartburn Providers: uSman Orona MD, Darcie Romo MD Referring MD: Britton Dumont (Referring MD) Medicines: Monitored Anesthesia Care Complications: No immediate complications. Procedure: After obtaining informed consent, the endoscope was passed under direct vision. Throughout the procedure, the patient's blood pressure, pulse, and oxygen saturations were monitored continuously. The Endoscope was introduced through the mouth, and advanced to the second part of duodenum. The upper GI endoscopy was accomplished without difficulty. The patient tolerated the procedure well. Findings: A single small submucosal mass was found above the gastroesophageal junction. Approx 1-2 cm in diameter, we reviewed it with Dr Leo (Interventional Endoscopoy) she felt it was a benign incidental submucosal venous prater typ lesion not of concern. Fluid/froth and dilation of the body of the esophagus was found. The exam of the esophagus was otherwise normal. A few small sessile polyps with no bleeding and no stigmata of recent bleeding were found in the gastric body, suspect fundic gland polyps. The exam of the stomach was otherwise normal. The examined duodenum was normal. A guidewire was placed and the scope was withdrawn. Dilation was performed at the cricopharyngeus with a Savary dilator with no resistance at 15 mm. The DUMONT capsule with delivery system was introduced through the mouth and advanced into the esophagus, such that the DUMONT pH capsule was positioned 39 cm from the incisors, which was 6 cm proximal to the GE junction. The DUMONT pH capsule was then deployed and attached to the esophageal mucosa. The delivery system was then withdrawn. Endoscopy was utilized for probe placement and diagnostic evaluation. Impression: - Small submucosal bleb/leison found in the esophagus, suspect venous structure. - Fluid and mild dilation in the esophageal body. - Normal examined duodenum. - Dilation performed at the cricopharyngeus. - The DUMONT pH capsule was deployed. - No specimens collected. Attending Participation: I was present and participated during the entire procedure, including non-[place] portions. Suman Orona MD, [id number] 03/04/2025 2:00:31 PM The attending physician was present throughout the entire procedure. Darcie Romo MD, [id number] Number of Addenda: 0 Note Initiated On: 03/04/2025 1:18 PM documented in this encounter Plan of Treatment Not on file documented as of this encounter Procedures Procedure Name Priority Date/Time Associated Diagnosis Comments ENDOSCOPY PROCEDURE 03/04/2025 1:18 PM EST documented in this encounter Results * ENDOSCOPY PROCEDURE (03/04/2025 1:18 PM EST) 03/04/2025 1:18 PM EST Narrative Transcriptions Stephanie Orona MD - 03/04/2025 1:18 PM EST Gastrointestinal Endoscopy Unit Patient Name: Red Gomez Exam Date: 03/04/2025 1:18 PM Date of : 1950 Admit Type: Outpatient Age: 74 Room: [place] [address] Gender: Male Note Status: Frame Table Operator Helper Override Attending MD: Suman Orona MD, Procedure: Upper GI endoscopy Indications: Heartburn Providers: Suman Orona MD, Darcie Romo MD Referring MD: Britton Dumont (Referring MD) Medicines: Monitored Anesthesia Care Complications: No immediate complications. Procedure: After obtaining informed consent, the endoscope was passed under direct vision. Throughout the procedure, the patient's blood pressure, pulse, and oxygen saturations were monitored continuously. The Endoscope was introduced through the mouth, and advanced to the second part of duodenum. The upper GI endoscopy was accomplished without difficulty. The patient tolerated the procedure well. Findings: A single small submucosal mass was found above the gastroesophageal junction. Approx 1-2 cm in diameter, we reviewed it with Dr Leo (Interventional Endoscopoy) she felt it was a benign incidental submucosal venous prater typ lesion not of concern. Fluid/froth and dilation of the body of the esophagus was found. The exam of the esophagus was otherwise normal. A few small sessile polyps with no bleeding and no stigmata of recent bleeding were found in the gastric body, suspect fundic gland polyps. The exam of the stomach was otherwise normal. The examined duodenum was normal. A guidewire was placed and the scope was withdrawn. Dilation was performed at the cricopharyngeus with a Savary dilator with no resistance at 15 mm. The DUMONT capsule with delivery system was introduced through the mouth and advanced into the esophagus, such that the DUMONT pH capsule was positioned 39 cm from the incisors, which was 6 cm proximal to the GE junction. The DUMONT pH capsule was then deployed and attached to the esophageal mucosa. The delivery system was then withdrawn. Endoscopy was utilized for probe placement and diagnostic evaluation. Impression: - Small submucosal bleb/leison found in the esophagus, suspect venous structure. - Fluid and mild dilation in the esophageal body. - Normal examined duodenum. - Dilation performed at the cricopharyngeus. - The DUMONT pH capsule was deployed. - No specimens collected. Attending Participation: I was present and participated during the entire procedure, including non-[place] portions. Suman Orona MD, [id number] 03/04/2025 2:00:31 PM The attending physician was present throughout the entire procedure. Darcie Romo MD, [id number] Number of Addenda: 0 Note Initiated On: 03/04/2025 1:18 PM Britton Dumont MD GI PROCEDURE ORDERABLES Edited Result - Final documented in this encounter Visit Diagnoses Not on filedocumented in this encounter Administered Medications Inactive Administered Medications - up to 3 most recent administrations Medication Order MAR Action Action Date Dose Rate Site ondansetron (PF) (ZOFRAN) injection 4 mg 4 mg, Intravenous, Once as needed, nausea, vomiting, Starting on Fri03/04/25 at 1414, For 6 hours, Recovery & Post-op, If unable to tolerate PO. ondansetron (ZOFRAN-ODT) disintegrating tablet 4 mg 4 mg, Oral, Once as needed, nausea, vomiting, Starting on Fri03/04/25 at 1414, For 6 hours, Recovery & Post-op sodium chloride (NS) 0.9 % syringe flush 3 mL 3 mL, Intravenous, As needed, line care, Starting on Fri03/04/25 at 1232, Pre-Procedure (day of), Per Institutional IV Line Care Policy. documented in this encounter Active and Recently Administered Medications Times are shown in EST. PRN Medication Order 03/02/2025 03/03/2025 03/04/2025 ondansetron (PF) (ZOFRAN) injection 4 mg(Linked Group 1) 4 mg, Intravenous, Once as needed, nausea, vomiting, Starting on Fri03/04/25 at 1414, For 6 hours, Recovery & Post-op, If unable to tolerate PO. ondansetron (ZOFRAN-ODT) disintegrating tablet 4 mg(Linked Group 1) 4 mg, Oral, Once as needed, nausea, vomiting, Starting on Fri03/04/25 at 1414, For 6 hours, Recovery & Post-op sodium chloride (NS) 0.9 % syringe flush 3 mL 3 mL, Intravenous, As needed, line care, Starting on Fri03/04/25 at 1232, Pre-Procedure (day of), Per Institutional IV Line Care Policy. Linked Groups Order Group 1: ondansetron (ZOFRAN-ODT) disintegrating tablet 4 mgJump to med 4 mg, Oral, Once as needed, nausea, vomiting, Starting on Fri03/04/25 at 1414, For 6 hours, Recovery & Post-op Or ondansetron (PF) (ZOFRAN) injection 4 mgJump to med 4 mg, Intravenous, Once as needed, nausea, vomiting, Starting on Fri03/04/25 at 1414, For 6 hours, Recovery & Post-op, If unable to tolerate PO. documented in this encounter Additional Health Concerns Assessment Noted Time PHQ-9 Depression Total Score: 2 01/17/20 8:56 PM EDT PHQ-2 Depression Total Score: 0 01/17/20 8:56 PM EDT documented as of this encounter Care Teams Copy Reader Relationship Specialty Start Date End Date Rhett Brown MD [address] [place] [address] [email or web address] PCP - General Internal Medicine 07/03/22 documented as of this encounter Additional Source Comments The information contained in this document represents components of the legal health record. It is not the complete legal health record.[facility]
--- OUTSIDE RECORDS SUMMARY | 2025-03-04 12:30 | XMS_ITS | Encounter Summary ---
Author Organization [facility] Address [address] [place] [address] Phone Care Team Providers Care Fleet Coordinator Name Role Phone Rhett Brown MD Primary Care Provider + Reason for Visit * Auth/Cert (Routine) Specialty Diagnoses / Procedures Referred By Bret holden Referred To Contact Diagnoses Pharyngoesophageal dysphagia Gastroesophageal reflux disease, unspecified whether esophagitis present Pharyngoesophageal dysphagia [R13.14] Gastroesophageal reflux disease, unspecified whether esophagitis present [K21.9] Procedures [place] ESOPHAGOGASTRODUODENOSCOPY TRANSORAL DIAGNOSTIC ESOPHAGOGASTRODUODENOSCOPY WITH DUMONT PROBE Referral ID Status Reason Start Date Expiration Date Visits Re quested Visits Authorized [id number] 1 1 Encounter Details Date Type Department Care Team (Latest Contact Info) Description 03/04/2025 12:30 PM EST - 03/04/2025 1:30 PM EST Surgery [place] [address] ENDO DEPT [address] [place] [address], 4th [place] [address] Stephanie Orona MD [address] [place] [address] [email or web address] ESOPHAGOGASTRODUODENOSCOPY WITH DUMONT PROBE Social History Tobacco Use Types Packs/Day Years [...] Sign Reading Time Taken Comments Blood Pressure 131/71 03/04/2025 12:30 PM EST Pulse 92 03/04/2025 12:30 PM EST Temperature 37.3 C (99.1 F) 03/04/2025 12:30 PM EST Respiratory Rate 17 03/04/2025 12:30 PM EST Oxygen Saturation 97% 03/04/2025 12:30 PM EST Inhaled Oxygen Concentration - - Weight - - Height - - Body Mass Index - - documented in this encounter Discharge Instructions * Discharge Instructions* Stephanie Orona MD - 03/04/2025 2:18 PM EST [facility] GI Endoscopy Unit Discharge Sheet [email or web address] Physician: Dr. Stephanie Orona MD General instructions: The staff of the [facility] thanks you for allowing us [...] 1950 Admit Type: Outpatient Age: 74 Room: [place] [address] Gender: Male Note Status: School Psychologist Override Attending MD: Suman Orona MD, Procedure: [...] procedure, including non-[place] portions. Suman Orona MD, [id number] 03/04/2025 2:00:31 PM The attending physician was present throughout the entire procedure. Darcie Romo MD, [id number] Number of Addenda: 0 Note Initiated On: 03/04/2025 1:18 PM documented in this encounter Plan of Treatment Not on file documented as of this encounter Procedures Procedure Name Priority Date/Time Associated Diagnosis Comments ENDOSCOPY PROCEDURE 03/04/2025 1 :18 PM EST documented in this encounter Results * ENDOSCOPY PROCEDURE (03/04/2025 1:18 PM EST) 03/04/2025 1:18 PM EST Narrative Transcriptions Stephanie Orona MD - 03/04/2025 1:18 PM EST Gastrointestinal Endoscopy Unit Patient Name: Red Gomez Exam Date: 03/04/2025 1:18 PM Date of : 1950 Admit Type: Outpatient Age: 74 Room: [place] [address] Gender: Male Note Status: School Psychologist Override Attending MD: Suman Orona MD, Procedure: [...] procedure, including non-[place] portions. Suman Orona MD, [id number] 03/04/2025 2:00:31 PM The attending physician was present throughout the entire procedure. Darcie Romo MD, [id number] Number of Addenda: 0 Note Initiated On: 03/04/2025 1:18 PM Britton Dumont MD GI PROCEDURE ORDERABLES Edited Result - Final documented in this encounter Visit Diagnoses Diagnosis Pharyngoesophageal dysphagia Dysphagia, pharyngoesophageal phase Gastroesophageal reflux disease, unspecified whether esophagitis present documented in this encounter Administered Medications Inactive Administered [...] documented as of this encounter Care Teams Fleet Coordinator Relationship Specialty Start Date End Date Rhett Brown MD [address] [place] [address] [email or web address] PCP - General Internal Medicine 07/03/22 documented as of this encounter Additional Source Comments The information contained in this document represents components of the legal health record. It is not the complete legal health record.[facility]
--- OUTSIDE RECORDS SUMMARY | 2025-03-04 12:50 | XMS_ITS | Encounter Summary ---
Author Organization [facility] Address [address] [place] [address] Phone Care Team Providers Care Vest Busheler Name Role Phone Rhett Brown MD Primary Care Provider + Reason for Visit * Auth/Cert (Routine) Specialty Diagnoses / Procedures Referred By Bret holden Referred To Contact Diagnoses Pharyngoesophageal dysphagia Gastroesophageal reflux disease, unspecified whether esophagitis present Pharyngoesophageal dysphagia [R13.14] Gastroesophageal reflux disease, unspecified whether esophagitis present [K21.9] Procedures [place] ESOPHAGOGASTRODUODENOSCOPY TRANSORAL DIAGNOSTIC ESOPHAGOGASTRODUODENOSCOPY WITH DUMONT PROBE Referral ID Status Reason Start Date Expiration Date Visits Re quested Visits Authorized [id number] 1 1 Encounter Details Date Type Department Care Team (Late st Contact Info) Description 03/04/2025 12:50 PM EST Anesthesia Event [place] [address] ENDO DEPT [address] [place] [address], 4th [place] [address] Geovani Barahona MD, AUGIE [address] [place] [address] [email or web address] Marcia Tinsley CRNA, DNP 55 [facility] [address] [place] [address] [email or web address] Anesthesia Record Procedure Summary Procedure Name Responsible Anesthesiologist Anesthesia Start Time Anesthesia Stop Time ESOPHAGOGASTRODUODENOSCOPY W ITH DUMONT PROBE Geovani Barahona MD, AUGIE 03/04/25 1250 03/04/25 1405 Events Date Time Event Comment 03/04/2025 1250 An Start 1251 1310 In Room 1312 An Start Data 1313 An Induction 1313 Natural Airway 1320 Scope In 1324 An Induction complet 1350 Scope Out 1355 Out of Room 1357 an stop data 1404 Post Op Handoff 1405 An Stop Meds Name Total fentaNYL 100 mcg lidocaine 2% 60 mg propofol 10mg/ml 357.42 mg ondansetron 4 mg phenylephrine (LIV-SYNEPHRINE) injection 80 mcg sodium chloride 0.9% (NS) infusion 250 m L * Agents Name CO2 insp N2O exp O2 exp N2O O2 Flow (aux) N2O insp Air O2 Flow (fresh gas) * Blood No blood administrations on file. Lines, Drains, and Airways Type Details Placement Removal Peripheral IV Placement Date: 02/21 05/18; Placement Time: 1231; Inserted by Other: Esther; Size: 20 G; Orientation: Anterior, Right; Location: Forearm; Removal Date: 03/04/25; Removal Time: 1511 03/04/25 1231 by Bina Arauz RN 03/04/25 1511 by James Armando RN documented in this encounter Social History Tobacco Use Types Packs/Day Years [...] PM EDT documented as of this encounter OR Notes * Anesthesia Postprocedure Evaluation - Marcia Tinsley CRNA, DNP - 03/04/2025 2:05 PM EST Anesthesia Post Operative Note Anesthesia Type: MAC Patient evaluated in: endoscopy recovery Consciousness: awake Airway/ Respiratory Status: Respiratory Status: no airway complications. Supplemental O2: nasal cannula Nausea/ Vomiting: nausea and vomiting control satisfactory Hydration status: adequate Analgesia/ Pain: Pain control is: adequate Vital Signs: Post-procedure vital signs reviewed Other: Patient experienced no anesthesia complications. Entered by: Marcia Tinsley CRNA, DNP No notable events documented. Vital Signs: Vitals Value Taken Time Pulse 70 03/04/25 14:05 BP 108/60 03/04/25 14:05 SpO2 99 03/04/25 14:05 Resp 14 03/04/25 14:05 Temp 03/04/25 14:05 No vitals data found for the desired time range. * Anesthesia Preprocedure Evaluation - Marcia Tinsley CRNA, DNP - 03/04/2025 1:10 PM EST Patient: Red Gomez Date of Surgery: 03/04/2025 Procedure: ESOPHAGOGASTRODUODENOSCOPY WITH DUMONT PROBE Surgeons and Role: * Stephanie Orona MD - Primary Relevant Problems CARDIOVASCULAR (+) Paroxysmal SVT (supraventricular tachycardia) GI/HEPATIC (+) Gastroesophageal reflux disease (+) Pharyngoesophageal dysphagia General: Patient snapshot reviewed. History (imported from record): Past Medical History: No date: Arrhythmia Comment: palpitations No date: Arthritis No date: Asthma No date: Chronic pain No date: Difficult intubation No date: Dysphagia No date: Dysphonia - No past surgical history on file. - History reviewed. No pertinent family history. - Social History: Social History Tobacco Use Smoking status: Never Smokeless tobacco: Never Vaping Use Vaping status: never used Alcohol use: Never Drug use: Never - Prior Anesthetics: Previous Anesthesia Records Displaying the 20 most recent records Date Procedure Department Test Fixture Assembler Notable Events Planned Anesthesia Type 03/04/25 ESOPHAGOGASTRODUODENOSCOPY WITH DUMONT PROBE [facility] [place] [facility] 4 ENDO DEPT Geovani Barahona MD, AUGIE - Exercise Tolerance: Exercise tolerance: Able to bike or walk 1 mile. Physical Exam Airway: The airway exam is normal. Mallampati score: III. Neck ROM is limited. Mouth opening: limited. TM distance: short. Dental: Comment: Chipped L front tooth. Prominent upper row of teeth (+) chipped teeth Cardiovascular: The cardiovascular exam is normal. Pulmonary: The pulmonary exam is normal. Neurological: The neurological exam is normal. Anesthesia Assessment and Plan ASA physical status: 4 Primary anesthetic: MAC Induction type: intravenous Airway: The plan for the airway is: natural. Monitoring/Lines: The plan for monitoring and lines is: standard monitor. Informed Consent: Anesthetic plan and risks discussed with: patient. documented in this encounter Plan of Treatment Not on file documented as of this encounter Visit Diagnoses Not on filedocumented in this encounter Administered Medications Inactive Administered Medications - up to 3 most recent administrations Medication Order MAR Action Action Date Dose Rate Site fentaNYL (PF) (SUBLIMAZE) injection Intravenous, As needed, Starting on Fri03/04/25 at 1317, Anesthesia Intra-op Given 03/04/2025 1:27 PM EST 25 mcg Given 03/04/2025 1:24 PM EST 25 mcg Given 03/04/2025 1:17 PM EST 50 mcg lidocaine (XYLOCAINE) 2% injection Intravenous, As needed, Starting on Fri03/04/25 at 1317, Anesthesia Intra-op Given 03/04/2025 1:17 PM EST 60 mg ondansetron (PF) (ZOFRAN) injection Intravenous, As needed, Starting on Fri03/04/25 at 1313, Anesthesia Intra-op Given 03/04/2025 1:13 PM EST 4 mg phenylephrine (LIV-SYNEPHRINE) injection Intravenous, As needed, Starting on Fri03/04/25 at 1344, Anesthesia Intra-op Given 03/04/2025 1:44 PM EST 80 mcg propofol (DIPRIVAN) infusion Intravenous, Continuous PRN, Starting on Fri03/04/25 at 1317, Anesthesia Intra-op Rate/Dose Change 03/04/2025 1:44 PM EST 130 mcg/kg/min 57.72 mL/hr New Bag 03/04/2025 1:17 PM EST 150 mcg/kg/min 66.6 mL/h r sodium chloride 0.9% infusion Intravenous, Continuous PRN, Starting on Fri03/04/25 at 1311, Anesthesia Intra-op New Bag 03/04/2025 1:11 PM EST documented in this encounter Additional Health Concerns Assessment Noted Time PHQ-9 Depression Total Score: 2 01/17/20 8:56 PM EDT PHQ-2 Depression Total Score: 0 01/17/20 8:56 PM EDT documented as of this encounter Care Teams Vest Busheler Relationship Specialty Start Date End Date Rhett Brown MD [address] [place] [address] [email or web address] PCP - General Internal Medicine 07/03/22 documented as of this encounter Additional Source Comments The information contained in this document represents components of the legal health record. It is not the complete legal health record.[facility]
--- OUTSIDE RECORDS SUMMARY | 2025-03-08 11:00 | XMS_ITS | Encounter Summary ---
Author Organization [facility] Address [address] [place] [address] Phone Care Team Providers Care Progressive Care Nurse Name Role Phone Rhett Brown MD Primary Care Provider + Reason for Visit * Auth/Cert (Routine) Specialty Diagnoses / Procedures Referred By Bret holden Referred To Contact Diagnoses ON MEDS Procedures PH PROBE REMOVAL Referral ID Status Reason Start Date Expiration Date Visits Re quested Visits Authorized [id number] 1 1 Encounter Details Date Type Department Care Team (Late st Contact Info) Description 03/08/2025 11:00 AM EST - 03/08/2025 11:30 AM EST Surgery [address], [address]th [place] [address] Stephanie Orona MD [address] [place] [address] [email or web address] PH PROBE REMOVAL Social History Tobacco Use Types Packs/Day Years [...] PM EDT documented as of this encounter Medications at Time of Discharge [...] morning. 12/01/2022 documented as of this encounter Plan of Treatment Not on file documented as of this encounter Visit Diagnoses Not on filedocumented in this encounter Additional Health Concerns Assessment Noted Time PHQ-9 Depression Total Score: 2 01/17/20 8:56 PM EDT PHQ-2 Depression Total Score: 0 01/17/20 8:56 PM EDT documented as of this encounter Care Teams Progressive Care Nurse Relationship Specialty Start Date End Date Rhett Brown MD [address] [place] [address] [email or web address] PCP - General Internal Medicine 07/03/22 documented as of this encounter Additional Source Comments The information contained in this document represents components of the legal health record. It is not the complete legal health record.[facility]
--- OUTSIDE RECORDS SUMMARY | 2025-03-08 14:02 | XMS_ITS | Encounter Summary ---
Author Organization [facility] Address [address] [place] [address] Phone Care Team Providers Care Billiard Player Name Role Phone Rhett Brown MD Primary Care Provider + Reason for Visit * Auth/Cert (Routine) Specialty Diagnoses / Procedures Referred By Bret holden Referred To Contact Diagnoses ON MEDS Procedures PH PROBE REMOVAL Referral ID Status Reason Start Date Expiration Date Visits Re quested Visits Authorized [id number] 1 1 Encounter Details Date Type Department Care Team (Latest Contact Info) Description 03/08/2025 2:02 PM EST - 03/08/2025 2:15 PM [facility] Hospital Encounter [address] DEPT [address] [place] [address], 4th [place] [address] Stephanie Orona MD [address] [place] [address] [email or web address] Discharge Disposition: Home or Self Care Social [...] documented as of this encounter Care Teams Billiard Player Relationship Specialty Start Date End Date Rhett Brown MD [address] [place] [address] [email or web address] PCP - General Internal Medicine 07/03/22 documented as of this encounter Additional Source Comments The information contained in this document represents components of the legal health record. It is not the complete legal health record.[facility]
--- OUTSIDE RECORDS SUMMARY | 2025-03-09 14:24 | XMS_ITS | Patient Health Record ---
Author Organization [facility] Address [address] [place] [address] Care Team Providers Care Production Sound Mixer Name Role Phone Humble Vásquez MD Primary Care Provider Lei Carroll Unavailable [phone] Reason For Referral No Information Medications Medication [...] Disorder of joint of ankle and/or foot (498636350) Arthritis - Degenerative (719.97) Active confirmed Problem Hammer toe (591011102) Hammer toe (735.4) Active confirmed Problem Achilles bursitis (357583885) Achilles Tendonitis Bursitis (726.71) Active confirmed Problem Exostosis (03044847) Exostosis (726.91) Active confirmed Plan Of Treatment No Information Insurance Providers Payer Name Payer Address Payer Phone Subscriber Number Group Number Insured Name Patient Relationship to Insured Coverage Start Date Coverage End Date [employer] ([employer]) [address] [place] [address] [phone] [id number] Red Gomez Self - patient is the insured Medical (General) History Medical History History ICD Code asthma Sinus conditions Surgical History Surgery Date(Month/Year) hernia 2013 knee surgery, left shoulder surgery Hospitalization History Reason Date(Month/Year) [facility]- hernia surgery 06/05/12 colonoscopy 04/06
--- OUTSIDE RECORDS SUMMARY | 2025-03-09 14:25 | XMS_ITS | Encounter Summary ---
Author Organization [facility] Address [address] [place] [address] Phone Care Team Providers Care Regulatory Affairs Associate Name Role Phone Rhett Brown MD Primary Care Provider + Encounter Details Date Type Department Care Team (Late st Contact Info) Description 03/04/2025 Procedure Pass [facility] ENDO DEPT [address] [facility], 4th [place] [address] Social History Tobacco Use Types Packs/Day Years [...] documented as of this encounter Care Teams Regulatory Affairs Associate Relationship Specialty Start Date End Date Rhett Brown MD [address] [place] [address] [email or web address] PCP - General Internal Medicine 07/03/22 documented as of this encounter Additional Source Comments The information contained in this document represents components of the legal health record. It is not the complete legal health record.[facility]
--- OUTSIDE RECORDS SUMMARY | 2025-03-09 14:25 | XMS_ITS | Clinical Summary ---
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 5 Active Active Problems Problem Noted Date Diagnosed Date Pharyngoesophageal dysphagia 01/27/2023 Gastroesophageal reflux disease 01/27/2023 Dry mouth 01/27/2023 Dysphonia 01/27/2023 Paroxysmal SVT (supraventricular tachycardia) 01/23/2023 Encounters Date Type Department Care Team Description 5 2:02 PM EST - 5 2:15 PM EST Hospital Encounter [facility] ENDO DEPT [address] [address] Stephanie Orona MD Discharge Disposition: Home or Self Care 5 11:00 AM EST - 5 11:30 AM EST Surgery [facility] ENDO DEPT [address] [address] Stephanie Orona MD PH PROBE REMOVAL 5 Procedure Pass [facility] ENDO DEPT [address] [address] 5 12:50 PM EST Anesthesia Event [facility] ENDO DEPT [address] [address] Geovani Barahona MD, AUGIE Tinsley, Marcia Pineda CRNA, DNP 5 12:30 PM EST - 5 1:30 PM EST Surgery [facility] ENDO DEPT [address] [address] Stephanie Orona MD ESOPHAGOGASTRODUODENOSCOPY WITH DUMONT PROBE 5 11:10 AM EST - 5 3:11 PM EST Hospital Encounter [facility] ENDO DEPT [address] [address] Stephanie Orona MD Discharge Disposition: Home or Self Care 5 Procedure Pass [facility] ENDO DEPT [address] [address] 2:45 PM EST Pre-Admission Testing [facility] Pre-Procedure Evaluation Department Please See Appointment Details VARSHA Hedrick [phone] Stephanie Orona MD from Last 3 Months [...] EST Inhaled Oxygen Concentration - - Weight 73.5 [...] VIRTUAL COLONOSCOPY 1994 PNEUMOCOCCAL VACCINES (50+ years) (2 of 2 - PCV20 or PCV21) 11/17/2018 11/17/2017 DEPRESSION SCREENING 01/17/2024 01/16/2023, 01/17/20 23 COVID-19 VACCINE ( season) 2025 01/12/2025, 02/29/2024, 06/13/2023, Additional history exists ZOSTER VACCINES Completed 12/17/2017, 09/04/2017 RSV VACCINE Completed 03/16/2023 INFLUENZA VACCINE Completed 01/12/2025, , 01/03/2023, Additional history exists SMOKING STATUS SCREENING (Once After 26 Yrs) Completed 03/04/2025 HEPATITIS A VACCINES Aged Out No long [...] this topic Medical Devices Not on file Procedures Procedure Name Priority Date/Time Associated Diagnosis Comments ENDOSCOPY PROCEDURE 03/04/2025 1 :18 PM EST from Last 3 Months Results * ENDOSCOPY PROCEDURE (03/04/2025 1:18 PM EST) 03/04/2025 1:18 PM EST Narrative Transcriptions Stephanie Orona MD - 03/04/2025 1:18 PM EST Gastrointestinal Endoscopy Unit Patient Name: Red Gomez Exam Date: 03/04/2025 1:18 PM Date of : 1950 Admit Type: Outpatient Age: 74 Room: [place] [address] Gender: Male Note Status: Supervisor Logging Override Attending MD: Suman Orona MD, Procedure: [...] during the entire procedure, including non-[place] portions. V Fan Orona MD, [id number] 03/04/2025 2:00:31 PM The attending physician was present throughout the entire procedure. Darcie Romo MD, [id number] Number of Addenda: 0 Note Initiated On: 03/04/2025 1:18 PM Britton Dumont MD GI PROCEDURE ORDERABLES Edited Result - Final from Last 3 Months Insurance [employer] TOTAL CHOICE INDEMNITY [employer] TOTAL CHOICE INDEMNITY [employer] TOTAL CHOICE INDEMNITY [employer] TOTAL CHOICE INDEMNITY [employer] TOTAL CHOICE INDEMNITY [employer] TOTAL CHOICE INDEMNITY Care Teams Car Rental Clerk Relationship Specialty Start Date End Date Rhett Brown MD [address] [place] [address] [email or web address] PCP - General Internal Medicine 07/03/22 Additional Source Comments The information contained in this document represents components of the legal health record. It is not the complete legal health record.[facility]
--- OUTSIDE RECORDS SUMMARY | 2025-03-09 14:25 | XMS_ITS | Clinical Summary ---
Author Organization [facility] [address] [facility] Address [address] [facility] [place] [address] Phone Care Team Providers Care Expedition Supervisor Name Role Phone Rhett Brown MD Primary Care Provider [phone] Allergies No known active allergies Medications albuterol [...] on file Sexual Orientation Not on file Last Filed Vital Signs Vital Sign Reading [...] 02/19/2022 Social Influencers of Health Screening 02/19/2022 Depression Screening 03/24/2024 COVID-19 Vaccine ( season) 2024 02/29/2024, 06/13/2023, 06/11/2023, Additional history exists Influenza Vaccine (#1) 2024 , 01/03/2023, 12/27/2021, Additional history exists Colorectal Cancer Screening: Colonoscopy Discontinued 03/30/2013 Zoster Vaccines Completed 12/17/2017, 09/04/2017 RSV Immunization [...] Most Recently Relevant to Health [place] [id number] [employer] VAR[place] OTT [id number] Care Teams Expedition Supervisor Relationship Specialty Start Date End Date Rhett Brown MD [address] [place], [place] PCP - General Internal Medicine 08/25/24
--- OUTSIDE RECORDS SUMMARY | 2025-03-09 14:26 | XMS_ITS | Encounter Summary ---
Author Organization [facility] Address [address] [place] [address] Phone Care Team Providers Care It Senior Software Engineer Java Name Role Phone Rhett Brown MD Primary Care Provider + Encounter Details Date Type Department Care Team (Late st Contact Info) Description 03/08/2025 Procedure Pass [facility] 4 ENDO DEPT 55 [facility], 4th [place] [address] Social History Tobacco Use Types Packs/Day Years [...] documented as of this encounter Care Teams It Senior Software Engineer Java Relationship Specialty Start Date End Date Rhett Brown MD [address] [place] [address] [email or web address] PCP - General Internal Medicine 07/03/22 documented as of this encounter Additional Source Comments The information contained in this document represents components of the legal health record. It is not the complete legal health record.[facility]
== END 2025-03-09 10:59 | disposition home or self-care (01) ==
LOC: HO.HMGAL 10:58
PROVIDERS: PCP Internal Medicine; Visit Provider Registered Nurse Emergency
DX: J30.89 Other allergic rhinitis (principal)
CPT/HCPCS: 95117; 95165